=== PATIENT | female | born 1965 | race Caucasian/White ===

== ENCOUNTER → 2023-12-05 14:06 | Outpatient (REF) | payer OTHER, SELFPAY | LOC: WDC 14:06 | PROVIDERS: ATTENDING PHYSICIAN Family Medicine | DX: Z12.31 Encounter for screening mammogram for malignant neoplasm of breast (principal) | CPT/HCPCS: 77063; 77067 ==

== ENCOUNTER → 2024-06-05 07:13 | Outpatient (REF) | payer OTHER, SELFPAY | LOC: RCS 07:13 | PROVIDERS: ATTENDING PHYSICIAN Family Medicine | DX: R00.2 Palpitations (principal); R07.89 Other chest pain | CPT/HCPCS: 93225; 93226; 93306 ==

== ENCOUNTER → 2024-08-13 06:57 | Outpatient (REF) | payer OTHER, SELFPAY | LOC: RAD 06:57 | PROVIDERS: ATTENDING PHYSICIAN Student in an Organized Health Care Education/Training Program; FAMILY PHYSICIAN Family Medicine | DX: I49.3 Ventricular premature depolarization (principal) | CPT/HCPCS: 93971 ==

== ENCOUNTER 2024-12-09 18:18 | Emergency (ER) | payer OTHER, SELFPAY ==
[2024-12-09 18:22] VITALS: BP 175/94
[2024-12-09 18:43] LABS: Hematocrit 45.8 % (37.0-47.0); Hemoglobin 15.7 g/dL (12.0-16.0); Mean Corp Hgb Conc. 34.3 g/dL (33.0-37.0); Mean Corpuscular Volume 86.4 fL (81.0-99.0); Nucleated Red Blood Cells % 0 %; Platelet Count 444 10^3/uL (130-400); Red Cell Dist. Width 12.8 % (11.5-14.5)
[2024-12-09 18:53] LABS: ALT (SGPT) 17 U/L (0-35); AST (SGOT) 21 U/L (14-36); Albumin 5.1 g/dl (3.5-5.0); Alkaline Phosphatase 59 U/L (38-126); Blood Urea Nitrogen 17 mg/dl (7-17); Calcium 10.0 mg/dl (8.4-10.2); Carbon Dioxide 30 mmol/L (22-30); Chloride 102 mmol/L (98-107); Glucose 120 mg/dl (70-99); Potassium 4.5 mmol/L (3.5-5.1); Sodium 138 mmol/L (135-145); Total Protein 7.9 g/dl (6.3-8.2); eGFR > 60.00
[2024-12-09 19:09] LABS: Troponin I < 0.012 ng/ml
[2024-12-09 22:00] VITALS: BP 130/76
--- NOTE | 2024-12-09 22:14 | ED.GENMED ---
History of Present Illness
General
Chief Complaint: Medication Reaction
Source: patient and spouse
Exam Limitations: none
Time Seen by Provider: 12/09/24 21:37
Nursing documentation reviewed up to this point in time: agreed with
History of Present Illness
History of Present Illness:
Note:
CHIEF COMPLAINT(S)
Chest discomfort and difficulty breathing, especially with deep breaths, after starting Wellbutrin.
HISTORY OF PRESENT ILLNESS
The patient is a 59-year-old female who presents with chest discomfort and difficulty breathing, particularly with deep breaths. These symptoms began after starting Wellbutrin one week ago for management of anxiety and depression related to job
stress. The patient previously experienced similar symptoms, described as panic attacks with a heavy feeling in the chest, approximately one year ago during a period of significant job-related stress. At that time, diagnostic evaluations, including
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
The patient was initially prescribed Lexapro, which she discontinued, believing it was not effective, but later realized it had indeed been beneficial. Subsequently, Wellbutrin was initiated, but she reported side effects including palpitations and
increased chest discomfort. This afternoon, she experienced exacerbated chest tightness and an inability to breathe deeply. Although she currently feels improved, she continues to experience headache, which she usually treats with Ibuprofen. An EKG
was performed today, and the results were within normal limits.
The patient expressed concern about the side effects of Wellbutrin and sought guidance on discontinuing the medication. She was taking a dosage of 100 mg and considered tapering by reducing the dose by half. A plan for medication adjustment is to be
discussed and formulated.
CHRONIC MEDICAL CONDITIONS SIGNIFICANTLY AFFECTING CARE
The patient has a history of anxiety and panic attacks, particularly related to job stress.
PHYSICAL EXAM
General: Alert, no acute distress.
Skin: Warm, dry.
Head: Normocephalic, atraumatic.
Neck: Supple, trachea midline.
Eye, Ears, Nose, Mouth and Throat: Oral mucosa moist.
Cardiovascular: Normal peripheral perfusion, No edema.
Respiratory: Respirations are non-labored.
Gastrointestinal: Abdomen nondistended.
Back: Normal range of motion, Normal alignment.
Musculoskeletal: Normal ROM, normal strength.
Neurological: Alert and oriented to person, place, time, and situation, No focal neurological deficit observed.
Psychiatric: Cooperative, appropriate mood & affect.
PROBLEM LIST
Acute Problems:
1. Chest discomfort
2. Difficulty breathing with deep breaths
3. Headache
Chronic Problems:
1. Anxiety
2. Panic attacks
PLAN
1. Discontinue Wellbutrin: Discuss tapering by reducing dose from 100 mg to 50 mg, considering the current adverse effects, and consult with the pharmacy for pill modification if necessary.
2. Consider reintroducing or switching to an alternative medication for anxiety management, depending on patient preference and clinical evaluation.
3. Continue monitoring for mental health symptoms, particularly in stressful situations.
4. Educate the patient on recognizing potential medication side effects and when to seek immediate medical attention.
5. Follow up with primary care or mental health provider for ongoing management of anxiety and medication adjustment.
DIFFERENTIAL DIAGNOSIS
The Differential Diagnosis includes, in no particular order and is not limited to:
1. Anxiety-related chest pain
2. Adverse drug reaction to Wellbutrin
3. Panic disorder
4. Gastroesophageal reflux disease (GERD)
5. Costochondritis
6. Musculoskeletal chest pain
7. Pulmonary embolism
8. Atypical angina
9. Respiratory infection
10. Pericarditis
CARE-UPDATE
12/09/24 - 22:17
EKG and troponin levels are normal. Likely adverse reaction to Wellbutrin identified. Plan to taper Wellbutrin to 100 mg every other day, transition to every third day for one week each. Patient advised on dosage schedule.
EKG
My independent EKG interpretation is:
- Time of EKG: Not specified
- Rhythm: Normal sinus rhythm
- Heart rate: 69 beats per minute
- [place] interval: Normal
- QRS duration: Normal
- QT interval: Normal
- [place]: Normal
- Abnormalities: None observed
Disposition:
SUMMARY OF ENCOUNTER
The patient, a 59-year-old female, was seen in the emergency department due to chest discomfort and difficulty breathing, particularly following the initiation of bupropion (Wellbutrin) one week ago. Her symptoms, including palpitations and
increased chest discomfort, are consistent with an adverse reaction to the medication. An EKG was performed and results were normal. The patient was advised about discontinuing the medication due to its side effects and considering alternative
management strategies for anxiety.
DISPOSITION
Discharge
ASSESSMENT
The patient is experiencing chest pain and difficulty breathing, likely related to an adverse reaction to bupropion (Wellbutrin).
PLAN
1. Discontinue bupropion: Tapering plan to be determined, considering adverse reactions.
2. Follow up with primary care physician for medication adjustment and alternative anxiety management.
3. Patient was advised on current precautions and symptom monitoring.
4. Educate the patient on medication side effects and instructed on recognizing symptoms that require medical attention.
INDEPENDENT REVIEW OF LABS AND INTERPRETATION OF TESTS
My independent review of EKG shows normal sinus rhythm, 69 beats per minute, with no abnormalities observed.
PATIENT EDUCATION AND COUNSELING
The patient was educated on discontinuing bupropion due to its adverse effects and advised on recognizing warning signs requiring immediate medical attention.
FOLLOW-UP INSTRUCTIONS
The patient is advised to follow up with their primary care provider to adjust anxiety management and discuss alternative medications.
MEDICATION RECONCILIATION
Bupropion 100 mg: Recommended discontinuation and tapering due to adverse reactions.
MEDICAL DECISION MAKING
Number and Complexity of Problems Addressed: Chronic conditions affecting care include anxiety and panic attacks. Differential diagnosis considers anxiety-related chest pain, adverse drug reaction to Wellbutrin, panic disorder, GERD,
costochondritis, musculoskeletal chest pain, pulmonary embolism, atypical angina, respiratory infection, and pericarditis.
Data:
Category 1
- My independent interpretation of EKG shows normal sinus rhythm.
Risk: Consideration of Admission/Observation: Escalation of care including admission/observation was considered given the complexity and risk of the patients presenting complaint, exam findings, and/or their underlying comorbidities. However,
ultimately the patient is considered safe for outpatient management with close follow up. Reasoning: Work-up is reassuring, does not reveal any acute life/organ threatening processes, patients symptoms well controlled upon reevaluation,
reexamination is reassuring, vitals are stable, patient agreeable with discharge, and is reliable for follow-up.
DIAGNOSIS
- Chest pain, unspecified type (R07.9)
- Adverse effect of bupropion (T43.201A)
Past History
Social History
Tobacco: Non-smoker
Phy Exam
Physical Exam
Physical Exam:
.
Course
Orders/Labs/Results
Orders:
Orders
12/09/24 18:19
Electrocardiogram (*1) Urgent
Reason for Study: Chest Pain
12/09/24 18:20
EKG- Treatment ONCE
12/09/24 18:24
Electrocardiogram (*1) Urgent
Reason for Study: Chest Pain
12/09/24 18:25
EKG- Treatment ONCE
12/09/24 18:32
CBC/With Diff [Complete Blood Count/With Diff] Urgent
Comprehensive Metabolic Panel Urgent
Troponin I Urgent
Abnormal Lab Results
12/09/24
18:32
Plt Count 444 H 10^3/uL
(130-400)
Abs Immat Gran (auto) 0.2 H 10^3/uL
(0-0.05)
Immature Gran % 1.7 H %
(0-0.5)
Glucose 120 H mg/dl
(70-99)
Albumin 5.1 H g/dl
(3.5-5.0)
12/09/24 18:32
12/09/24 18:32
Vital Signs
Initial and Last Documented VS:
Initial Vital Signs
Temp Pulse Resp BP Pulse Ox
98.6 F 72 20 175/94 99
12/09/24 18:22 12/09/24 18:22 12/09/24 18:22 12/09/24 18:22 12/09/24 18:22
Last Documented Vital Signs
Temp Pulse Resp BP Pulse Ox
98.6 F 73 14 130/76 98
12/09/24 18:22 12/09/24 22:00 12/09/24 22:00 12/09/24 22:00 12/09/24 22:18
*Pulse Oximetry
SaO2: 98
Oxygen Mode of Delivery: Room air
Patient hypoxic: no
*Critical Care Note
Total Time (30-74mins, 75-104mins- exclusive of procedures): Not Applicable
ED Attending Note
-
Portions of this chart may have been created with voice recognition software.� Occasional wrong word or��sound alike� substitutions may have occurred due to the inherent limitations of voice recognition software.
Discharge Plan
Departure
Patient Disposition: Home (Routine Discharge)
Date of Disposition: 12/09/24
Time of Disposition: 22:14
Patient with high blood pressure during this ER visit?: Yes
Condition: Good
Discharge Problem:
Chest pain
Instructions: Adverse Drug Reactions, Child ED, BLOOD PRESSURE, Chest Pain
Prescriptions:
No Action
hydrocodone-acetaminophen [Vicodin] 1 EACH tablet
1 tab PO Q6HPRN PRN (Reason: pain) Qty: 10 0RF
Activity Restrictions/Additional Instructions:
Follow-up with your primary care doctor. Take Wellbutrin every other day for 1 week, and then every third day for 1 week, and then you may stop the medication.
Interventions
Interventions:
*Risk Screen - Suicide Last Done: 12/09/24 22:10
*General Assessment Last Done: 12/09/24 18:22
*Neglect/Abuse Screening Last Done: 12/09/24 22:10
*ED- Fall Risk Assessment Last Done: 12/09/24 22:10
*ED COVID-19 Vaccine History Last Done: 12/09/24 22:10
*ED Influenza Vaccine History Last Done: 12/09/24 22:10
*Nursing Disposition Last Done: 12/09/24 22:21
ED-Skin Assessment Last Done: 12/09/24 22:10
ED- Pulmonary Assessment Last Done: 12/09/24 22:10
ED-EENT Assessment Last Done: 12/09/24 22:10
Discharge Date and Time
Discharge Date/Time: 12/09/24 22:21
Print Language: [email or web address]
== END 2024-12-09 22:21 | disposition home or self-care (01) ==
LOC: EMR 18:18
PROVIDERS: Emergency Medicine; EMERGENCY PHYSICIAN Emergency Medicine; FAMILY PHYSICIAN Family Medicine
DX: R07.9 Chest pain, unspecified (principal); R03.0 Elevated blood-pressure reading, without diagnosis of hypertension; F41.9 Anxiety disorder, unspecified; F41.0 Panic disorder [episodic paroxysmal anxiety]; F32.A Depression, unspecified
CPT/HCPCS: 99284; 80053; 84484; 85025; 93005